=== PATIENT | female | born 1935 | race Caucasian/White ===

== ENCOUNTER → 2016-11-02 | Outpatient (CLI) | payer MEDICARE ==
[~2016-11-02] MED LIST: ARFO15VI IH; ASPI-860 PO; BIOT10004 PO; CALC-250 PO; CEFD300C PO; CHOL100045 PO; CYAN10006 PO; DOXY100C2 PO; HCT25T PO; LEVO75TA6 PO; LEVO88TA4 PO; LSRT50T PO; MIRT7.5T8 PO; MNTL10T PO; MULT-35 PO; MV M PO; POLY17PO6 PO; PRAV40TA2 PO; PRD10T PO; PRED10TA PO; RANI150T11 PO; SIMV40TA2 PO; SOTA80TA PO; TRAZ-28 PO
--- NOTE | 2016-11-02 18:24 | Diagnostic Imaging Report ---
INDICATION: Chest pain x1 week. Comparison with 06/21/2015. FINDINGS: There is obstructive interstitial lung disease bilaterally. There are acute bilateral basilar alveolar infiltrates laterally. Right slightly greater than left. The upper lungs are clear. The heart is not enlarged. Pacemaker present with leads in good position. No evidence of pneumothorax or pleural effusions. No hilar adenopathy. Heart is mildly enlarged. IMPRESSION: 1. Cardiomegaly with no evidence of congestive failure. 2. Basilar infiltrates bilaterally suggesting pneumonia. Dictated by: Dictated on workstation # [id number]
== END ==
LOC: RAD 17:26
PROVIDERS: ATTEND Internal Medicine
DX: R07.89 Other chest pain (principal); I51.7 Cardiomegaly
CPT/HCPCS: 71020

== ENCOUNTER → 2016-12-08 | Outpatient (CLI) | payer MEDICARE | LOC: RAD 06:48 | PROVIDERS: ATTEND Internal Medicine | DX: R07.89 Other chest pain (principal) | CPT/HCPCS: 71250 ==

== ENCOUNTER 2016-12-22 13:01 | Inpatient (IN) | payer MEDICARE ==
[~2016-12-22] VITALS: Ht 165.1 cm; Wt 51.0 kg
[2016-12-22] MEDS ORDERED: SODIUM CHLORIDE FLUSH 3 ML SYR IV PRN (13:25)
[2016-12-22 13:40] LABS: CLARITY,URINE Clear; COLOR,URINE Yellow; GLUCOSE, URINE (UA) Negative (Negative); LEUKOCYTE ESTERASE ,URINE Negative (Negative); PH,URINE 5.5 (5.0 - 8.0); UROBILINOGEN,URINE 0.2 mg/dL (0.2-1.0)
[2016-12-22 13:43] LABS: BILIRUBIN,URINE 1+ (Negative)
[2016-12-22] MEDS: SODIUM CHLORIDE FLUSH 10 ML SYR IV PRN (13:49)
[2016-12-22 13:57] LABS: MEAN CORPUSCULAR HEMOGLOBIN 33.5 PG (26.0-34.0); MEAN CORPUSCULAR HGB CONC 34.9 g/dL (31.0-37.0); MEAN CORPUSCULAR VOLUME 96 FL (80-100); MEAN PLATELET VOLUME 8.8 FL (6.0-9.5); WHITE BLOOD COUNT 16.59 10^3uL (4.0-11.0)
[2016-12-22 13:58] LABS: PLATELET COUNT 631 10^3uL (150-450)
[2016-12-22 14:01] LABS: BAND NEUTROPHILS % 1 % (0-6); EOSINOPHILS % 0 % (0-4); LYMPHOCYTES # 1.8 #; MONOCYTES % 6 % (3-11); RBC MORPH NORMAL (NORMAL); SEGMENTED NEUTROPHILS % 82 % (51-67); TOTAL CELLS COUNTED 100
[2016-12-22] MEDS ORDERED: ONDANSETRON 2 MG/ML (Z0FRAN) 2 ML VIAL IV ONE (14:05)
[2016-12-22 14:06] LABS: ALBUMIN 3.7 g/dL (3.4-5.0); ANION GAP 13.7 MEQ/L (3-15); CALCULATED IONIZED CALCIUM 4.8 mg/dL (3.8-4.6); TOTAL PROTEIN 7.5 g/dL (6.4-8.5)
[2016-12-22 17:37] VITALS: BP 126/69
[2016-12-22] MEDS ORDERED: ACETAMINOPHEN 325 MG TAB (TYLENOL) PO PRN (18:15)
[2016-12-22] MEDS ORDERED: ONDANSETRON 2 MG/ML (Z0FRAN) 2 ML VIAL IV PRN (18:15)
[2016-12-22] MEDS ORDERED: cefTRIAXone SODIUM 1,000 MG in SODIUM CHLORIDE 50 ML IV SCH (18:15)
[2016-12-22] MEDS ORDERED: ALBUTEROL/IPRATROPIUM 3MG-0.5MG/3ML (DUONEB) NEB VIAL INH PRN (18:20)
--- NOTE | 2016-12-22 18:29 | NUR ---
MED REC COMPLETE--current med list obtained from external med history application, patient report (written list), and retail pharmacy ([facility]). Addendum: 12/23/16 at 0951 by Nell Mendes PH[facility] Added/update additional OTC medications plus Arformoterol from home medications brought in by family.
[2016-12-22 18:31] VITALS: BP 126/69
[2016-12-22] MEDS ORDERED: cefTRIAXone 1 GM (ROCEPHIN) VIAL ONE (19:27)
[2016-12-22] MEDS ORDERED: SODIUM CHLORIDE 50 ML IV ONE (19:27)
[2016-12-22] MEDS ORDERED: SODIUM CHLORIDE 100 ML ONE (19:27)
[2016-12-22] MEDS ORDERED: AZITHROMYCIN 500 MG (ZITHROMAX) VIAL IV ONE (20:08)
[2016-12-22] MEDS ORDERED: SODIUM CHLORIDE 250 ML ONE (20:08)
[2016-12-22] MEDS: AZITHROMYCIN VIAL 500 MG in SODIUM CHLORIDE 250 ML IV SCH (20:10)
--- NOTE | 2016-12-22 20:49 | NUR ---
Pt unable to Do IS due to confusion at this time. SPO2 94% on RA, HR 67.
[2016-12-22] MEDS ORDERED: SIMvastatin 40 MG (ZOCOR) TAB PO SCH (21:00)
[2016-12-22] MEDS ORDERED: NON-FORMULARY MEDICATION 1 EA EA (Mirtazapine 7.5 MG) PO SCH (21:00)
[2016-12-22] MEDS ORDERED: MIRTAZAPINE 15 MG (REMERON) TABLET ONE (21:48)
[2016-12-22] MEDS: MONTELUKAST 10 MG (SINGULAIR) TAB PO SCH (21:49)
[2016-12-22] MEDS: SOTALOL 80 MG (BETAPACE) TAB PO SCH (21:50)
[2016-12-23 03:50] VITALS: BP 102/59
[2016-12-23] MEDS: LEVOTHYROXINE 88 MCG (LEVOTHORID) TABLET PO SCH (05:45)
[2016-12-23 06:04] LABS: MEAN CORPUSCULAR HGB CONC 34.5 g/dL (31.0-37.0); MEAN CORPUSCULAR VOLUME 97 FL (80-100); MEAN PLATELET VOLUME 8.7 FL (6.0-9.5); WHITE BLOOD COUNT 18.32 10^3uL (4.0-11.0)
[2016-12-23 06:09] LABS: MEAN CORPUSCULAR HEMOGLOBIN 33.3 PG (26.0-34.0)
[2016-12-23 06:14] LABS: BAND NEUTROPHILS % 2 % (0-6); LYMPHOCYTES # 2.4 #; SEGMENTED NEUTROPHILS % 80 % (51-67)
[2016-12-23 06:15] LABS: EOSINOPHILS % 0 % (0-4); MONOCYTES # 0.9 #; MONOCYTES % 5 % (3-11); RBC MORPH NORMAL (NORMAL); TOTAL CELLS COUNTED 100
[2016-12-23 06:16] LABS: PLATELET COUNT 639 10^3uL (150-450)
--- NOTE | 2016-12-23 06:26 | NUR ---
Patient rests in bed throughout night. Remains on room air, saO2 >92%. No needs at this time.
[2016-12-23 06:55] LABS: ALBUMIN 3.1 g/dL (3.4-5.0); ANION GAP 12.5 MEQ/L (3-15); CALCULATED IONIZED CALCIUM 4.7 mg/dL (3.8-4.6); TOTAL PROTEIN 6.6 g/dL (6.4-8.5)
[2016-12-23 08:00] VITALS: BP 106/64
[2016-12-23] MEDS ORDERED: cefTRIAXone SODIUM 1,000 MG in SODIUM CHLORIDE 50 ML IV SCH (08:02)
--- NOTE | 2016-12-23 08:07 | NUR ---
NUTRITION ASSESSMENT Level 1 Patient: Em Bynum Age/Sex: 81/F Date Screened: 12-23-16 Weight: 112.2#/51 kg Height: 65 inches Primary Diagnosis: weakness, altered mental status Diet Order: cardiac Relevant labs: glucose 108 Food allergies: N Nutrition Assessment Criteria Age over 80: 4 points Body Mass Index (BMI) under 19: 6 points Admission Screening Indicates Risk? 3 points Moderate/High Risk Diagnosis: N TPN or PPN: N NPO or clear liquid diet: N Serum Glucose <70 or >180: N Hgb A1c >6.7: N/A Total: 13 points Risk Screen: __ Patient at low nutritional risk based on available data; reevaluate in 5-7 days __ Patient at moderate nutritional risk based on available data; reevaluate in 3-5 days _X_ Patient at high nutritional risk; complete Nutrition Assessment within 48 hours of admission.
[2016-12-23] MEDS: predniSONE 20 MG (DELTASONE) TABLET PO SCH (08:12)
[2016-12-23] MEDS: MULTIVITAMIN W/MINERALS (THERAGRAN M) TABLET PO SCH (08:12)
[2016-12-23] MEDS: SOTALOL 80 MG (BETAPACE) TAB PO SCH ×2 (08:13→20:38)
[2016-12-23] MEDS: ASPIRIN 81 MG CHEW (CHILDREN'S ASA) PO SCH (08:13)
[2016-12-23] MEDS: CHOLECALCIFEROL 1000 INT UNITS (VITAMIN D3) TABLET PO SCH (08:13)
[2016-12-23] MEDS: FAMOTIDINE 20 MG (PEPCID) TABLET PO SCH (08:13)
[2016-12-23] MEDS: POLYETHYLENE GLYCOL 17 GM (MIRALAX) PACKET PO SCH (08:17)
[2016-12-23] MEDS ORDERED: LOSARTAN 50 MG (COZAAR) TABLET PO SCH (09:00)
[2016-12-23] MEDS ORDERED: HYDROCHLOROTHIAZIDE 25 MG (HCTZ) TAB PO SCH (09:00)
[2016-12-23] MEDS ORDERED: FAMOTIDINE 20 MG (PEPCID) TABLET PO SCH (09:00)
--- NOTE | 2016-12-23 10:47 | NUR ---
NUTRITION ASSESSMENT Level II Patient: Em Bynum Age/Sex: 81/F Date Assessed: 12-23-16 ASSESSMENT Pertinent History: Patient admitted with weakness and altered mental status, and screened at high nutritional risk secondary to being ill x2 weeks with getting progressively weaker, low BMI and stated weight loss. PMHx includes pulmonary fibrosis, HTN, hypothyroidism, COPD and dementia. She lives alone at home. No GI concerns noted at this time. Per old chart, pt. weighed 121# in April, and down to 106# in 2014. Meds/Nutrition: Remeron, Pepcid, vitamin D, Miralax, HCTZ, MVI, Prednisone, Synthroid Weight: 112.2#/51 kg Height: 65 inches Body Mass Index (BMI): 18.7 [place] Body Weight : 125#/56.8 kg % IBW: 89% GASTROINTESTINAL Appetite: poor, eating 25% Diet Order: cardiac Unintentional loss of >10 lbs. in 3 months: N Difficult to chew/swallow: N Diabetes: N Relevant Labs: glucose 108 Calculations for Nutritional Assessment Estimated calorie needs: 28-30 kcals/kg = 1,420-1,530 kcals Estimated protein needs: 1.3-1.5 g/kg = 66-76 g./day DIAGNOSIS 1. Nutrition Diagnosis: Increased protein needs related to increased work of breathing and elderly age as evidenced by pulmonary fibrosis with weakness and low BMI in elderly female. NUTRITIONAL INTERVENTION Goal: Patient will receive adequate nutrition to meet her needs. Plan: Consider liberalizing diet to no added salt instead of cardiac--adequate protein intake is essential and may be significantly enhanced by having more flavorful foods. Recommend smaller portions until her appetite picks up, and supplement with Ensure for additional kcals/protein. Will follow. MONITORING & EVALUATION _X_ Monitor patients menu selections _X_ Monitor patients food intake per nursing notes __ Monitor NPO/clear liquid days __ Monitor lab values __ Monitor I&O __ Other
[2016-12-23 16:00] VITALS: BP 94/54
[2016-12-23] MEDS: AZITHROMYCIN VIAL 500 MG in SODIUM CHLORIDE 250 ML IV SCH (18:30)
--- NOTE | 2016-12-23 18:30 | NUR ---
Pt resting in bed at this time. Skin warm, dry, intact. Resprs nonlabored, even on RA. Pt has denied needs this shift. Up with SBA to toilet. IV abx infusing at this time. Denies needs.
--- NOTE | 2016-12-23 19:15 | NUR ---
Pt is sitting up in bed watching tv, alert and oriented x 4, Resp are even and nonlabored, LCTAB, HRRR, BS are active x 4 quadrants. IV is infusing Zithromax at this time, no redness, swelling, or s/s of infection noted at this time. Pt denies pain or discomfort. See assessment for further information. Call light is in reach, will continue to monitor.
[2016-12-23] MEDS: MONTELUKAST 10 MG (SINGULAIR) TAB PO SCH (20:38)
[2016-12-23] MEDS ORDERED: SIMvastatin 20 MG (ZOCOR) TAB PO SCH (21:00)
[2016-12-23] MEDS ORDERED: MIRTAZAPINE 15 MG (REMERON) TABLET PO SCH (21:00)
[2016-12-24 00:37] VITALS: BP 91/50
--- NOTE | 2016-12-24 04:12 | NUR ---
Pt has been resting in bed asleep most of this shift. Does not appear in pain or discomfort during this shift. Call light is in reach, will continue to monitor.
[2016-12-24] MEDS: LEVOTHYROXINE 88 MCG (LEVOTHORID) TABLET PO SCH (05:39)
[2016-12-24 07:40] VITALS: BP 116/71
--- NOTE | 2016-12-24 07:45 | NUR ---
Pt. resting in bed, denies pain, n/v or dyspnea. Pt. states she is supposed to go home today. She asks questions about how to improve her outcome once at home. Encouraged pt. to be active, as able, and continue to use incentive spirometer at home. Instructions given on it's proper use and pt. demonstrated.
[2016-12-24] MEDS: predniSONE 20 MG (DELTASONE) TABLET PO SCH (08:12)
[2016-12-24] MEDS: MULTIVITAMIN W/MINERALS (THERAGRAN M) TABLET PO SCH (08:12)
[2016-12-24] MEDS: CHOLECALCIFEROL 1000 INT UNITS (VITAMIN D3) TABLET PO SCH (08:12)
[2016-12-24] MEDS: SOTALOL 80 MG (BETAPACE) TAB PO SCH (08:13)
[2016-12-24] MEDS: FAMOTIDINE 20 MG (PEPCID) TABLET PO SCH (08:13)
[2016-12-24] MEDS: ASPIRIN 81 MG CHEW (CHILDREN'S ASA) PO SCH (08:13)
[2016-12-24] MEDS: POLYETHYLENE GLYCOL 17 GM (MIRALAX) PACKET PO SCH (08:13)
[2016-12-24 08:47] LABS: MEAN CORPUSCULAR HGB CONC 33.2 g/dL (31.0-37.0); MEAN CORPUSCULAR VOLUME 97 FL (80-100); MEAN PLATELET VOLUME 8.7 FL (6.0-9.5); WHITE BLOOD COUNT 16.66 10^3uL (4.0-11.0)
[2016-12-24 08:48] LABS: MEAN CORPUSCULAR HEMOGLOBIN 32.4 PG (26.0-34.0)
[2016-12-24 08:56] LABS: BAND NEUTROPHILS % 1 % (0-6); EOSINOPHILS % 0 % (0-4); LYMPHOCYTES # 2.3 #; MONOCYTES # 0.6 #; MONOCYTES % 4 % (3-11); SEGMENTED NEUTROPHILS % 78 % (51-67)
[2016-12-24 08:57] LABS: PLATELET COUNT 736 10^3uL (150-450); TOTAL CELLS COUNTED 100
[2016-12-24 08:58] LABS: ANION GAP 13.6 MEQ/L (3-15)
[2016-12-24] MEDS ORDERED: HYDROCHLOROTHIAZIDE 12.5 MG (HCTZ) TABLET PO SCH (09:00)
[2016-12-24] MEDS ORDERED: LOSARTAN 25 MG (COZAAR) TABLET PO SCH (09:00)
[2016-12-24 09:24] LABS: RBC MORPH NORMAL (NORMAL)
--- NOTE | 2016-12-24 09:47 | NUR ---
Visited with Pt. and son regarding discharge plans. Pt. would benefit from home health services. Pt. and son agreeable to this. They would like to use [facility] since Pt. has utilized them previously. Visited with OT and PT regarding their recommendations and relayed to son. OT recommends grab bars for the shower, sitting in the shower, [facility] [employer] Whe[facility] and [facility]. PT recommends Pt. use a cane in the home and a walker in the community. SW provided Pt. son with resources for [facility] and [facility]. Son has an appointment with Moi JACQUES on Wednesday. Will order home health services with PT/OT through [facility] for Pt. RYLIE will also contact [facility] [employer] [facility] and get Pt. on the waiting list.
--- NOTE | 2016-12-24 11:38 | NUR ---
Nutrition Follow Up: Visited with pt. re: meals at home. Pt. stated she doesn't eat much throughout the day until supper time, and faces several barriers including decreased appetite and does'nt cook since her . She does drink Ensure, though, and said the taste wasn't bad except it was a little sweet. I suggested she dilute it with whole milk, and pt. said it had never occurred to her to try that. I also provided several smoothie recipes with the intent that if her appetite is poor, sometimes a liquid shake can provide necessary nutrients (especially protein) with little effort. Pt. also is having her upper teeth removed and chipped a lower tooth, so chewing foods is limited. She can chew soft food and likes yogurt, beans and ground beef. She agreed to try Vietnamese Yogurt at lunch today to see if she likes it, since it has twice the protein content of regular. Provided pt. with a handout of protein content of common foods, with a goal of minimum 66 g./day. This can seem overwhelming, so I encouraged Ensure and supplements as a way of meeting that.
--- NOTE | 2016-12-24 12:00 | NUR ---
Verified with Dr. Lee that Zithromax dose can be given prior to discharge. Pharmacy notified.
[2016-12-24] MEDS: AZITHROMYCIN VIAL 500 MG in SODIUM CHLORIDE 250 ML IV SCH (12:17)
[2016-12-24] MEDS: SODIUM CHLORIDE FLUSH 10 ML SYR IV PRN (12:17)
--- NOTE | 2016-12-24 13:36 | NUR ---
Discharge instructions reviewed with pt. Pharmacy to review medications with pt. Zithromax finishing infusion.
--- NOTE | 2016-12-24 14:47 | NUR ---
Zithromax is complete, IV has been DC'd. Pts. son here. Pt. dismissed at this time to home with home health via WC accompanied off unit by DISPLAY MANAGER and son.
== END 2016-12-24 14:47 | disposition home health service (06) | DRG 190 ==
LOC: ED 13:02 → MED/SURG 16:55
PROVIDERS: ADMIT Family Medicine; ATTEND Family Medicine
DX: J44.0 Chronic obstructive pulmonary disease with (acute) lower respiratory infection (principal); J18.9 Pneumonia, unspecified organism; J84.10 Pulmonary fibrosis, unspecified; I10 Essential (primary) hypertension; E78.5 Hyperlipidemia, unspecified; E03.9 Hypothyroidism, unspecified; R53.1 Weakness; Z95.810 Presence of automatic (implantable) cardiac defibrillator; Z87.891 Personal history of nicotine dependence; Z79.52 Long term (current) use of systemic steroids
CPT/HCPCS: 36415; 51701; 70450; 71010; 80048; 80053; 81003; 84484; 85025; 86140; 87040; 87486; 87581; 87633; 87798; 93005; 96361; 96374; 99284; 99285

== ENCOUNTER → 2016-12-28 | Outpatient (REF) | payer MEDICARE | LOC: LAB 12:00 | PROVIDERS: ATTEND Internal Medicine | DX: Z53.9 Procedure and treatment not carried out, unspecified reason (principal) ==

== ENCOUNTER → 2016-12-28 | Outpatient (CLI) | payer MEDICARE ==
[2016-12-28 12:42] LABS: MEAN CORPUSCULAR HGB CONC 33.7 g/dL (31.0-37.0); MEAN CORPUSCULAR VOLUME 96 FL (80-100); MEAN PLATELET VOLUME 8.9 FL (6.0-9.5); WHITE BLOOD COUNT 13.16 10^3uL (4.0-11.0)
[2016-12-28 12:47] LABS: ANION GAP 11.5 MEQ/L (3-15)
[2016-12-28 12:49] LABS: MEAN CORPUSCULAR HEMOGLOBIN 32.3 PG (26.0-34.0)
[2016-12-28 13:18] LABS: BAND NEUTROPHILS % 0 % (0-6); EOSINOPHILS % 0 % (0-4); LYMPHOCYTES # 2.2 #; MONOCYTES # 0.8 #; MONOCYTES % 6 % (3-11); RBC MORPH NORMAL (NORMAL); SEGMENTED NEUTROPHILS % 76 % (51-67); TOTAL CELLS COUNTED 100
[2016-12-28 13:19] LABS: PLATELET COUNT 660 10^3uL (150-450)
== END ==
LOC: LAB 12:09
PROVIDERS: ATTEND Internal Medicine
DX: J18.9 Pneumonia, unspecified organism (principal); I10 Essential (primary) hypertension
CPT/HCPCS: 36415; 71020; 80048; 84450; 85025; 86140

== ENCOUNTER → 2017-01-26 | Outpatient (REF) | payer MEDICARE ==
[2017-01-26 08:53] LABS: BASOPHILS % (AUTO) 0 % (0-2); EOSINOPHILS # (AUTO) 0.1 10^3uL; EOSINOPHILS % (AUTO) 1 % (0-4); LYMPHOCYTES # (AUTO) 2.5 X10^3; MEAN CORPUSCULAR HEMOGLOBIN 33.5 PG (26.0-34.0); MEAN CORPUSCULAR HGB CONC 34.3 g/dL (31.0-37.0); MEAN CORPUSCULAR VOLUME 98 FL (80-100); MEAN PLATELET VOLUME 8.1 FL (6.0-9.5); MONOCYTES # (AUTO) 1.2 X10^3; MONOCYTES % (AUTO) 12 % (3-11); NEUTROPHILS # (AUTO) 5.6 X10^3; NEUTROPHILS % (AUTO) 59 % (51-67); PLATELET COUNT 388 10^3uL (150-450); WHITE BLOOD COUNT 9.46 10^3uL (4.0-11.0)
== END ==
LOC: LAB 08:46
PROVIDERS: ATTEND Internal Medicine
DX: E03.8 Other specified hypothyroidism (principal); D47.3 Essential (hemorrhagic) thrombocythemia
CPT/HCPCS: 84439; 84443; 85025

== ENCOUNTER → 2017-03-03 | Outpatient (CLI) | payer MEDICARE ==
[2017-03-03 20:42] VITALS: BP 124/82
--- NOTE | 2017-03-03 20:42 | Urgent Care T Sheet Gen (E) ---
Intake General Temperature (Fahrenheit): 97.7 Pulse: 57 Blood Pressure Systolic: 124 Blood Pressure Diastolic: 82 Respirations: 20 SPO2: 96 Chief Complaint: UC Laceration Description of Symptoms 81 year female presents accompanied by son with laceration and multiple skin tears after fall. States she was working in yard all day and had overdone it, when she was walking in her legs felt weak and she tripped on walk fell forward onto cement. Denies hitting her head, denies LOC. She tried to push her life alert button but it didn't work. Crawled to house and called son. Source: Patient Exam Limitations: No limitations History of Present Illness Onset & Duration: Hours (1) Timing: Still present Severity: Moderate Pain Intensity: 7 Modifying Factors: Immobilization, Movement Associated Symptoms: Weakness Recent Trauma: Yes (recent fall) Similar Sympotms Previously: No Allergies: Coded Allergies: Penicillins (Unverified Allergy, Unknown, 06/21/15) Tetanus Vaccines and Toxoid (Unverified Allergy, Unknown, 06/21/15) codeine (Unverified Allergy, Unknown, 06/21/15) Home Meds Active Scripts Cefdinir 300 Mg Pvztndp604 Mg PO BID Infection #10 CAP Ref 0 Prov:Blanca Calero TOGGLER 12/24/16 Prednisone 10 Mg Gbqnmk62 Mg PO DAILY Inflammation #12 TAB Ref 0 2 tabs daily x 3 days, 1 tab daily x 3 days, then 1/2 tab daily x 3 days and stop Prov:Blanca Calero TOGGLER 12/24/16 Reported Medications Arformoterol Tartrate (Brovana)15 Mcg/2 Ml Nebu15 Mcg IH BID 12/23/16 Mv-Min/FA/D3/Om-3/Dha/Epa/Fish (Adult Multi + [place]-3 Gummies)1 Each Tab.chew2 Each PO DAILY 12/23/16 Cyanocobalamin (Vitamin B-12) (Vitamin B-12)1,000 Mcg Tablet1,000 Mcg PO DAILY 12/23/16 Biotin 1,000 Mcg Tab.chew1,000 Mcg PO DAILY 12/23/16 Cholecalciferol (Vitamin D3) (Vitamin D3)5,000 Unit Tablet5,000 Unit PO DAILY Vitamin/Mineral Supplemnt Ref 0 12/23/16 Polyethylene Glycol 3350 (Miralax)17 Gm Powd.pack17 Gm PO DAILY Constipation Ref 0 12/22/16 Simvastatin 40 Mg Mtwrpj37 Mg PO HS #45 12/22/16 Levothyroxine Sodium 88 Mcg Qqdmdg06 Mcg PO DAILY@0700 #30 12/22/16 Ranitidine HCl 150 Mg Wwhikq955 Mg PO BID #180 12/22/16 Montelukast Sodium 10 Mg Wqpvkr14 Mg PO HS #30 12/22/16 Mirtazapine 7.5 Mg Tablet7.5 Mg PO HS #30 12/22/16 Aspirin 81 Mg Tablet.dr81 Mg PO DAILY 04/26/15 Hydrochlorothiazide (Hctz)25 Mg Qqbxqs45.5 Mg PO DAILY Ref 0 04/26/15 Sotalol HCl (Sotalol)80 Mg Qhfsxg05 Mg PO BID 04/26/15 Losartan Potassium 50 Mg Ybrfau10 Mg PO DAILY 04/26/15 Respiratory Constitutional Symptoms: No Chills, No Diaphoresis, No Fever, No Malaise, Weakness EENTM: No symptoms reported Respiratory: No Short of breath Cardiovascular: No Chest pain Gastrointestinal/Abdominal: No Abdominal pain, No Nausea, No Vomiting Musculoskeletal: Joint pain (no joint pain) Other (muscle weakness) Skin: Other (laceration to left 4th digit and multiple skin tears on left hand and arm, abrasion to right knee) Neurological: No Numbness, No Paresthesia, Weakness (bilateral legs, chronic issue and worse when she overdoes it) All Other Systems Reviewed Remaining Systems: All other systems reviewed with negative findings Past Nentnoh-Umfrci-Frbadr Hx Patient's Social History Alcohol Use: Rarely Uses Smoking Status: Former smoker Recent foreign travel: No Surgeries/Hospitalizations Hospitalization/Surgery Hx: neck lamecectomy eye gall bladder pacemaker cataract of right eye Respiratory Respiratory History: COPD, Other, see comment Comment: Pneumonia history Cardiovascular Cardiovascular History: Hypertension, Hypercholesterolemia, Pacemaker/ Defibrillator, Other, see comment Comment: Irregular heart rate Neuro/Muscular Neuro/Muscular History: None Reproductive System Sexually Transmitted Diseases: No Genitouinary Genitourinary History: None Gastrointestinal GI/Endocrine History: Thyroid disorder Diabetes Diabetes: No HEENT Impaired Vision: Glasses Hearing Impaired: None Integumentary Integumentary History: None Cancer History of Cancer?: Yes Cancer type: skin Psychosocial Behavior Disorders: Depression Physical Exam Physical Exam General Appearance: WD/WN Moderate distress Eyes, Ears, Nose, Throat Ex: PERRL/EOMI Neck Exam: Normal inspection Respiratory Exam: Lungs clear Normal breath sounds No respiratory distress No accessory muscles used Cardiovascular Exam: Regular rate, rhythm (HR 62) No edema No gallop No JVD No murmur GI/ Exam: Non tender Skin Exam: Normal color Other (3 cm laceration to left 4th digit on dorsal aspect, skin tear to 5th digit, wrist, and forearm, full movement at PIP and DIP against resistence, pink, cap refill < 2 secs, warm, no numbess or tingling , sensation intact) Neurologic/Psychiatric Exam: Oriented times 4 No motor deficits No sensory deficits Mood/affect nml Weakness Procedures/Interventions Laceration Repair : Location Modifier: Left Wound Location: Finger (4th digit, dorsal) Type: Laceration (with maceration on medial aspect) Wound Appearance: Bleeding (on aspirin), Unapproximated Laceration Depth: Superficial Lesion Length: 3 Laceration Explored: Clean (normal saline irrigation and saline and betadine solution), No foreign body removed Irrigated w/Saline (mls): 150 Skin Prep Used: Betadine Anesthesia: 1% Lidocaine (web block used) Volume of Anesthetic (mls): 5 Wound Debridement: Minimal Suture: Prolene Suture Size: 4-0 Number of Sutures: 6 Sterile Dressing Applied: Yes Progress Area explored and no foreign body, offered to go to ED for Xray and further work up, declined. Area on medial aspect ,macerated. Dressed with Xeroform and Telfa and gauze. Skin tears cleansed and bacitracin applied and Telfa and wrapped in gauze. After dressing fingers warm, pink, cap refill < 2 sec. Departure Urgent Care Impression Chief Complaint: UC Laceration Impression: Primary Impression: Laceration of finger Qualified Code: S61.219A - Laceration without foreign body of unspecified finger without damage to nail, initial encounter Additional Impression: Fall at home Qualified Code: W19.XXXA - Unspecified fall, initial encounter Departure Disposition: HOME OR SELF-CARE Condition: Stable Referrals: CARLY MILLER MD (PCP) Additional Instructions: Advised to keep clean and dry x 24 hours, then shower and cleanse with soap and water. No bath, pool or submerging hand. Advised that someone stay wit patient this evening. Follow up with PCP tomorrow regarding weakness and to reevaluate for PT. Advised to do neurovascular checks and monitor for infection. Pt and son verbalized understanding., End of report . MISTI SUGGS TOGGLER March 03, 2017 20:42
== END ==
LOC: MHUC 16:15
PROVIDERS: ATTEND Physician Assistant
DX: S61.215A Laceration without foreign body of left ring finger without damage to nail, initial encounter (principal); W18.39XA Other fall on same level, initial encounter
CPT/HCPCS: 12002; 99213

== ENCOUNTER → 2017-03-11 | Outpatient (CLI) | payer MEDICARE ==
[2017-03-11 14:29] VITALS: BP 150/84
--- NOTE | 2017-03-11 14:29 | Urgent Care T Sheet Gen (E) ---
Intake General Temperature (Fahrenheit): 98.0 Pulse: 68 Blood Pressure Systolic: 150 Blood Pressure Diastolic: 84 Respirations: 18 SPO2: 96 Description of Symptoms Patient presents for suture removal. Patient suffered a fall last week and came to for treatment. Her L hand took the brunt of the injury, causing skin tears, laceration and bruises. Patient had 6 sutures placed. States the hand, volar surface, remains painful however to a lesser degree than last week. No new numbness (admits to some numbness always in the hands). Patient states the hand is very tender, maynor since she is left handed. Has tried Tylenol , Motrin and Aleve, none of which give lasting relief. History of Present Illness Allergies: Coded Allergies: Penicillins (Unverified Allergy, Unknown, 06/21/15) Tetanus Vaccines and Toxoid (Unverified Allergy, Unknown, 06/21/15) codeine (Unverified Allergy, Unknown, 06/21/15) Home Meds Active Scripts Cefdinir 300 Mg Oqehuue826 Mg PO BID Infection #10 CAP Ref 0 Prov:Blanca Calero APRN 12/24/16 Prednisone 10 Mg Hskgor47 Mg PO DAILY Inflammation #12 TAB Ref 0 2 tabs daily x 3 days, 1 tab daily x 3 days, then 1/2 tab daily x 3 days and stop Prov:Blanca Calero APRN 12/24/16 Reported Medications Arformoterol Tartrate (Brovana)15 Mcg/2 Ml Nebu15 Mcg IH BID 12/23/16 Mv-Min/FA/D3/Om-3/Dha/Epa/Fish (Adult Multi + [place]-3 Gummies)1 Each Tab.chew2 Each PO DAILY 12/23/16 Cyanocobalamin (Vitamin B-12) (Vitamin B-12)1,000 Mcg Tablet1,000 Mcg PO DAILY 12/23/16 Biotin 1,000 Mcg Tab.chew1,000 Mcg PO DAILY 12/23/16 Cholecalciferol (Vitamin D3) (Vitamin D3)5,000 Unit Tablet5,000 Unit PO DAILY Vitamin/Mineral Supplemnt Ref 0 12/23/16 Polyethylene Glycol 3350 (Miralax)17 Gm Powd.pack17 Gm PO DAILY Constipation Ref 0 12/22/16 Simvastatin 40 Mg Ajyvbg74 Mg PO HS #45 12/22/16 Levothyroxine Sodium 88 Mcg Ratjku76 Mcg PO DAILY@0700 #30 12/22/16 Ranitidine HCl 150 Mg Hydyhd665 Mg PO BID #180 12/22/16 Montelukast Sodium 10 Mg Iikayc97 Mg PO HS #30 12/22/16 Mirtazapine 7.5 Mg Tablet7.5 Mg PO HS #30 12/22/16 Aspirin 81 Mg Tablet.dr81 Mg PO DAILY 04/26/15 Hydrochlorothiazide (Hctz)25 Mg Twccni39.5 Mg PO DAILY Ref 0 04/26/15 Sotalol HCl (Sotalol)80 Mg Irkkbx11 Mg PO BID 04/26/15 Losartan Potassium 50 Mg Vwgach74 Mg PO DAILY 04/26/15 Respiratory Constitutional Symptoms: No syptoms reported EENTM: No symptoms reported Respiratory: No symptoms reported Cardiovascular: No symptoms reported Musculoskeletal: Joint pain Muscle pain Skin: Lesions All Other Systems Reviewed Remaining Systems: All other systems reviewed with negative findings Past Jcfuaka-Ujmcsm-Fnwuml Hx Patient's Social History Alcohol Use: Rarely Uses Smoking Status: Former smoker Recent foreign travel: No Surgeries/Hospitalizations Hospitalization/Surgery Hx: neck lamecectomy eye gall bladder pacemaker cataract of right eye Respiratory Respiratory History: COPD, Other, see comment Comment: Pneumonia history Cardiovascular Cardiovascular History: Hypertension, Hypercholesterolemia, Pacemaker/ Defibrillator, Other, see comment Comment: Irregular heart rate Neuro/Muscular Neuro/Muscular History: None Reproductive System Sexually Transmitted Diseases: No Genitouinary Genitourinary History: None Gastrointestinal GI/Endocrine History: Thyroid disorder Diabetes Diabetes: No HEENT Impaired Vision: Glasses Hearing Impaired: None Integumentary Integumentary History: None Cancer History of Cancer?: Yes Cancer type: skin Psychosocial Behavior Disorders: Depression Physical Exam Physical Exam General Appearance: WD/WN No apparent distress Skin Exam: Other (several abrasions and 1 healing laceration noted along the volar surface of the L hand. The laceration in question has scabbed over. Surrounding skin is healing. Numerous bruises throughout the hand.) Extremity Exam: Full range of motion (no crepitus with isolated joint movement.) Normal capillary refill Tenderness (over all MCP joints.) Neurologic/Psychiatric Exam: Sensory deficit (decreased sensation in hands ( not new)) Procedures/Interventions Suture/Wound Check : Suture/Wound Check: Sutures removed/provider Progress 6 sutures were removed. Area remains very tender. Since the wound is over the PIP joint, I'm afraid movement will break it open. I therefore applied a finger splint. Departure Urgent Care Impression Impression: Primary Impression: Visit for suture removal Additional Impressions: Laceration of finger Qualified Code: S61.219D - Laceration without foreign body of unspecified finger without damage to nail, subsequent encounter Hand pain Qualified Code: M79.642 - Pain in left hand Departure Disposition: 01 HOME OR SELF-CARE Condition: Stable Referrals: CARLY MILLER MD (PCP) Additional Instructions: Long discussion with patient regarding workup and treatment. 6 sutures were removed without issue, aside from causing pain to the area. Due to the location and the nature of the laceration, I splinted the patient's finger to prevent excessive movement which may break open the wound. She is to keep it splinted for another week. Regarding the persistent pain, I suggested ordering a hand xray, however she declined. If she changes her mind, she is to call and we'll send an order. Regarding the pain, patient asked if there was a topical pain med she could apply. I said no due to the open sores. She states the OTC meds aren't helping. Asked if she has ever taken Tramadol and she declined. I prescribed Tramadol 50mg 1 tab po q 6 hrs prn severe pain. Suggested trying the OTC meds but if no better, may use the Tramadol. May cause drowsiness, be aware. Patient understands DC instructions. All questions were answered. End of report . LIANET BENTON March 11, 2017 14:29
== END ==
LOC: MHUC 10:14
PROVIDERS: ATTEND Physician Assistant
DX: S61.412D Laceration without foreign body of left hand, subsequent encounter (principal); M79.642 Pain in left hand; W19.XXXD Unspecified fall, subsequent encounter
CPT/HCPCS: 99213